=== PATIENT | male | born 1975 | race Caucasian/White ===

== ENCOUNTER 2016-07-31 07:18 | Emergency (ER) | payer SELFPAY ==
[~2016-07-31] VITALS: Ht 177.8 cm; Wt 63.5 kg
[2016-07-31 07:20] VITALS: BP 144/91
[2016-07-31] MEDS ORDERED: LORazepam 1 MG TABLET PO ONE (07:30)
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
== END 2016-07-31 08:01 | disposition home or self-care (01) ==
LOC: ER 07:42
DX: F10.239 Alcohol dependence with withdrawal, unspecified (principal); F12.10 Cannabis abuse, uncomplicated; I10 Essential (primary) hypertension; Z90.49 Acquired absence of other specified parts of digestive tract; Z88.0 Allergy status to penicillin; Z88.6 Allergy status to analgesic agent
CPT/HCPCS: 99283